=== PATIENT | female | born 1935 | race Caucasian/White ===

== ENCOUNTER 2016-12-03 13:16 | Observation (INO) ==
--- NOTE | 2016-12-03 13:53 | Emergency Department Note ---
Disposition Clinical Impression: GI bleed Qualifiers: GI bleed type/associated pathology: unspecified gastrointestinal hemorrhage type Qualified Code(s): K92.2 - Gastrointestinal hemorrhage, unspecified Chest pain Qualifiers: Chest pain type: unspecified Qualified Code(s): R07.9 - Chest pain, unspecified Disposition: Admitted As Inpatient Condition: Fair GI Bleed HPI - General Chief complaint: ED GI Bleed Stated complaint: GI Bleed Time Seen by Provider: 12/03/16 13:40 Source: patient, EMS Limitations: no limitations Nursing Notes Reviewed: Yes Vital Signs Reviewed: Yes - History of Present Illness HPI Narrative: Ms. Acosta, an 81yo female, arrives from [facility] via EMS with chief complaint of bright red blood per rectum. Patient states this began 5 days ago. States she is having bright red blood per rectum at all times; not just with bowel movements. States she is now passing clots. Patient was told by the nursing aides at [facility] that the blood is coming from her rectum, not from her vagina. Patient anticoagulated on Xaralto. Reason: hx recurrent DVT. She admits to feeling generalized weakness. Also admits to left-sided chest pressure present with exertion, nonradiating, associated with dyspnea. Admits to constipation. Denies nausea, diaphoresis, palpitations, vertigo. Denies fever, chills, nausea , vomiting, diarrhea. No hx Patient has never had a colonoscopy. Patient denies history of diverticulosis or hemorrhoids. Patient denies family history of colon cancer - Related Data Home Medications Medication Instructions Recorded Confirmed Acetaminophen [Tylenol] 650 mg PO Q6HR PRN 12/03/16 12/03/16 Alendronate Sodium [Fosamax] 70 mg PO QWEEK 12/03/16 12/03/16 Amlodipine [Norvasc] 5 mg PO DAILY 12/03/16 12/03/16 Atorvastatin Calcium [Lipitor] 20 mg PO HS 12/03/16 12/03/16 Calcium Carbonate/Vitamin D3 1 each PO BID 12/03/16 12/03/16 [Calcium 600-Vit D3 400 Tablet] Citalopram Hydrobromide 10 mg PO DAILY 12/03/16 12/03/16 [Citalopram HBr] Docusate [Colace] 100 mg PO BID PRN 12/03/16 12/03/16 Guaifenesin [Diabetic Tussin Ex] 300 mg PO Q6H PRN 12/03/16 12/03/16 LORazepam [Ativan] 0.5 mg PO DAILY 12/03/16 12/03/16 Levothyroxine [Synthroid] 112 mcg PO 0630 12/03/16 12/03/16 Loperamide HCl [Anti-Diarrheal] 2 mg PO QID PRN MDD 8 mg 12/03/16 12/03/16 Magnesium Hydroxide [Milk of 2,400 mg PO DAILY PRN 12/03/16 12/03/16 Magnesia] Oxybutynin [Ditropan] 5 mg PO BID 12/03/16 12/03/16 Polyethylene Glycol 3350 [Gavilax] 17 gm PO DAILY 12/03/16 12/03/16 PredniSONE 20 mg PO BIDWM 12/03/16 12/03/16 Rivaroxaban [Xarelto] 15 mg PO 1700 12/03/16 12/03/16 Tramadol HCl [Ultram] 50 mg PO Q4H PRN 12/03/16 12/03/16 Witch Sue [Tucks] 1 each RC Q6H PRN 12/03/16 12/03/16 Previous Rx's Medication Instructions Recorded Amoxicillin/Clavulanate [Augmentin] 875 mg PO BIDWM #20 tablet 12/01/16 Dicyclomine [Bentyl] 10 mg PO QID #20 capsule 12/01/16 Allergies Allergy/AdvReac Type Severity Reaction Status Date / Time azithromycin Allergy Anaphylaxis Verified 11/30/16 21:37 All systems ED: reviewed and negative except as stated. Constitutional: Reports: weakness. Denies: fever, chills Eyes: Denies: vision change ENT ED: Denies: throat pain, congestion Cardiovascular: Reports: chest pain, dyspnea on exertion. Denies: palpitations , orthopnea, edema, syncope Respiratory: Reports: dyspnea. Denies: cough, wheezes, hemoptysis Gastrointestinal: Reports: abdominal pain, hematochezia. Denies: nausea, vomiting, diarrhea, constipation, hematemesis, melena Genitourinary: Denies: urgency, dysuria, frequency Musculoskeletal: Denies: back pain, neck pain Neurological: Reports: weakness. Denies: headache, numbness, paresthesias, confusion, vertigo Hematological/Lymphatic: Reports: easy bleeding, easy bruising Past Medical History - Past Medical History Medical history: Reports: cancer, DVT, hypertension, thyroid disease Psychiatric history: Reports: depression - Social History Smoking Status: Never smoker Smokeless Tobacco Status: No Alcohol use: Reports: none Drug use: Reports: none Physical Exam General: Patient is alert, oriented, and in no acute distress. HEENT: No facial asymmetry. Head is normocephalic and atraumatic. PERRLA. Conjunctiva pale. Trachea midline. Oral mucosa moist. Cardiovascular: Heart regular rate and rhythm without clicks, rubs, gallops, or murmurs. No JVD. PMI nondisplaced. Respiratory: Symmetric chest rise with good respiratory effort. Bilateral breath sounds are without wheezing, crackles, or rhonchi. Abdomen: Obese. Bowel sounds present normoactive x-4 quadrants. Abdomen is soft, nondistended, without guarding. Mild tenderness in the hypogastrium. Rectal: Bright red blood per rectum. Good rectal tone. No evidence of fissure or hemorrhoid. Small balls of stool present in rectal vault. Bright red blood on gloved finger. FOBT symmetric. Psych: Patient's affect is appropriate for situation. - General Limitations: no limitations General appearance: alert Course Course Narrative: Chart check shows patient was here 3 days ago and, at that time, stated her symptoms had began 4 days previous. This would make her 7 days out from onset of bright red blood per rectum. 3 days ago, patient's FOBT was positive and lab work was unremarkable. CT abdomen and pelvis without contrast showed no acute process within the abdomen or pelvis. Patient's abdominal exam is relatively benign however rectal exam showed copious gross blood on the gloved finger. Fortunately, her hemoglobin remained stable and well above threshold for transfusion. I spoke with the patient regarding admission and she is in agreement. I spoke with the hospitalist, Dr. Hartman, and reviewed the patient's history, her imaging from Wednesday, and lab work from today as well as from Wednesday. He agrees to accept her for continued evaluation and management. Patient remained stable; not tachypneic, not tachycardic, not hypotensive. Vital Signs Temperature 98.0 F 12/03/16 13:17 Pulse Rate 74 12/03/16 13:17 Respiratory Rate 16 03/09/17 13:17 Blood Pressure 134/73 12/03/16 13:17 O2 Sat by Pulse Oximetry 100 12/03/16 13:17 Temperature 98.2 F 12/03/16 19:28 Pulse Rate 82 12/03/16 19:28 Respiratory Rate 16 12/03/16 19:28 Blood Pressure 151/54 12/03/16 19:28 O2 Sat by Pulse Oximetry 99 12/03/16 19:28 Oxygen Delivery Oxygen Delivery Room Air GI Bleed - Lab Data Result diagrams: 12/03/16 19:32 12/03/16 14:32 Lab Results 12/03/16 12/03/16 12/03/16 Range/Units 14:32 14:32 14:32 WBC 6.5 (4.3-11.1) K/mcL RBC 4.05 (3.82-4.97) M/mcL Hgb 12.2 (11.5-15.4) g/dL Hct 39.0 (35.3-44.9) % MCV 96.3 (83.0-100.0) fL MCH 30.1 (28.0-33.3) pg MCHC 31.3 L (31.6-35.5) g/dL RDW 12.6 (11.5-14.5) % Plt Count 199 (140-400) K/mcL MPV 10.6 (9.4-12.4) fL Immature Gran % 0.2 (0-4) % Seg Neutrophils % 51.5 % Lymphocytes % 35.5 % Monocytes % 10.3 % Eosinophils % 2.2 % Basophils % 0.3 % Neutrophils # 3.4 (1.6-8.9) K/mcL Lymphocytes # 2.3 (0.6-4.6) K/mcL Monocytes # 0.7 (0.0-1.3) K/mcL Eosinophils # 0.1 (0.0-0.6) K/mcL Basophils # 0.0 (0.0-0.2) K/mcL Sodium 141 (136-145) mEq/L Potassium 4.5 (3.5-4.5) mEq/L Chloride 110 H (98-109) mEq/L Carbon Dioxide 24 (19-29) mEq/L BUN 17 (7-20) mg/dL Creatinine 0.91 (0.57-1.11) mg/dL Est GFR ( Amer) > 60 (> 60) Est GFR (Non-Af Amer) 59 L (> 60) BUN/Creatinine Ratio 19 (6-26) Glucose 104 H (70-99) mg/dL Calculated Osmolality 294 (280-300) Calcium 8.5 L (8.6-10.8) mg/dL Troponin I 0.00 (0-0.03) ng/mL Stool Occult Blood (Negative) Blood Type Antibody Screen 12/03/16 12/03/16 Range/Units 14:32 14:35 WBC (4.3-11.1) K/mcL RBC (3.82-4.97) M/mcL Hgb (11.5-15.4) g/dL Hct (35.3-44.9) % MCV (83.0-100.0) fL MCH (28.0-33.3) pg MCHC (31.6-35.5) g/dL RDW (11.5-14.5) % Plt Count (140-400) K/mcL MPV (9.4-12.4) fL Immature Gran % (0-4) % Seg Neutrophils % % Lymphocytes % % Monocytes % % Eosinophils % % Basophils % % Neutrophils # (1.6-8.9) K/mcL Lymphocytes # (0.6-4.6) K/mcL Monocytes # (0.0-1.3) K/mcL Eosinophils # (0.0-0.6) K/mcL Basophils # (0.0-0.2) K/mcL Sodium (136-145) mEq/L Potassium (3.5-4.5) mEq/L Chloride (98-109) mEq/L Carbon Dioxide (19-29) mEq/L BUN (7-20) mg/dL Creatinine (0.57-1.11) mg/dL Est GFR ( Amer) (> 60) Est GFR (Non-Af Amer) (> 60) BUN/Creatinine Ratio (6-26) Glucose (70-99) mg/dL Calculated Osmolality (280-300) Calcium (8.6-10.8) mg/dL Troponin I (0-0.03) ng/mL Stool Occult Blood Positive A (Negative) Blood Type B NEGATIVE Antibody Screen NEGATIVE Attestation Statement - Attestation Attestation: DR Colbert note: Pt seen in conjunction w/ Resident Dr Mcfarlane; Please see his charting for complete documentation; I agree w/ pt's treatment and disposition and spent face to face time w/ the pt; Pt is stable at time of admission ; persistent rectal bleeding x 4-5 days; hemoglobin stable; chest pain today
[2016-12-03 14:47] LABS: Basophils % 0.3 %; Eosinophils # 0.1 K/mcL (0.0-0.6); Eosinophils % 2.2 %; Hemoglobin 12.2 g/dL (11.5-15.4); Immature Granulocytes % 0.2 % (0-4); Lymphocytes # 2.3 K/mcL (0.6-4.6); Lymphocytes % 35.5 %; Mean Corpuscular HGB Conc 31.3 g/dL (31.6-35.5); Mean Corpuscular Hemoglobin 30.1 pg (28.0-33.3); Mean Corpuscular Volume 96.3 fL (83.0-100.0); Mean Platelet Volume 10.6 fL (9.4-12.4); Monocytes # 0.7 K/mcL (0.0-1.3); Monocytes % 10.3 %; Neutrophils # 3.4 K/mcL (1.6-8.9); Platelet Count 199 K/mcL (140-400); Red Blood Count 4.05 M/mcL (3.82-4.97); Red Cell Distribution Width 12.6 % (11.5-14.5); Segmented Neutrophils % 51.5 %
[2016-12-03 15:02] LABS: BUN/Creatinine Ratio 19 (6-26); Blood Urea Nitrogen 17 mg/dL (7-20); Calcium 8.5 mg/dL (8.6-10.8); Carbon Dioxide 24 mEq/L (19-29); Chloride 110 mEq/L (98-109); Glucose 104 mg/dL (70-99); Osmolality,Calculated 294 (280-300); Potassium 4.5 mEq/L (3.5-4.5); Sodium 141 mEq/L (136-145); eGFR For African Americans > 60 (> 60); eGFR For Non-African Americans 59 (> 60)
[2016-12-03] MEDS ORDERED: GuaiFENesin Liq 200 MG/10 ML UDC PO PRN (18:53)
[2016-12-03] MEDS ORDERED: Acetaminophen 325 MG TABLET PO PRN (18:53)
[2016-12-03] MEDS ORDERED: Polyethylene Glycol 3350 255 GM POWDER PO ONE (19:03)
[2016-12-03] MEDS ORDERED: traMADol 50 MG TABLET PO PRN (19:08)
[2016-12-03] MEDS ORDERED: Ondansetron 4 MG/2 ML VIAL IVP PRN (19:11)
[2016-12-03] MEDS ORDERED: Naloxone 0.4 MG/ML INJ IVP PRN (19:11)
[2016-12-03] MEDS ORDERED: 0.9 % Sodium Chloride 1,000 ML IVC SCH (19:15)
--- NOTE | 2016-12-03 19:20 | Internal Med History&Physical ---
Date of Encounter: 12/03/16 Time of Encounter: 19:17 Assessment and Plan (1) Acute lower GI bleeding Current visit: Yes Status: Acute Patient is currently hemodynamically stable. We will place the patient on observation. Monitor hemoglobin and hematocrit every 6 hours. Transfuse if greater than 2 hemoglobin drop or hemoglobin below 8. I have discussed the case with gastroenterology. We will prep the patient for colonoscopy with plan to have a colonoscopy done tomorrow morning at 7 AM. We will start IV fluids normal saline. Stop Xarelto. Hold all anticoagulants and antiplatelets. IV PPI. (2) Essential hypertension Current visit: Yes Status: Acute Hold her oral antihypertensive medication for now as she is at risk for hypotension from volume loss secondary to GI bleed. (3) On continuous oral anticoagulation Current visit: Yes Status: Acute Hold Xarelto (4) History of DVT in adulthood Current visit: Yes Status: Acute No evidence of recurrent DVT. We will use SCDs for prophylaxis. (5) DVT prophylaxis Current visit: Yes Status: Acute Internal Medicine - H&P: HPI Chief complaint: Rectal bleeding Admitted From: Emergency Dept Plans for Post Hospital Care: Home History of present illness: Ms. Acosta is a 81 year old female with past medical history significant for breast cancer status post resection and DVT on chronic anticoagulation with Xarelto who presented to the hospital for evaluation of rectal bleeding. The patient reports that she has been having multiple episodes of rectal bleeding, or almost continuous since last Wednesday 5 days ago associated with generalized weakness denies syncope chest pain shortness of breath. She states that she passes blood every time she has a bowel movement and the blood is mixed with stool. Denies any associated abdominal pain. She had noticed no aggravating or alleviating factors. Upon evaluation in the emergency department she was noted to have abundant rectal bleeding. She she was found to be hemodynamically stable and her hemoglobin was 12. She was referred for admission. 10 point review of systems was positive for joint aches and pain secondary to osteoarthritis, rectal bleed as above, negative for any other abnormal bleeding or easy bruising. The remainder of a temporary review of systems was negative. Family history was negative for premature coronary artery disease and cancer in both parents. Past Med Surg Social Fam HX - Past Medical History Medical history: cancer, DVT, hypertension, thyroid disease Psychiatric history: depression - Social History Smoking Status: Never smoker Smokeless Tobacco Status: No Alcohol use: none Drug use: none Internal Medicine - H&P: Meds Amoxicillin/Clavulanate [Augmentin] 875 mg PO BIDWM #20 tablet 12/01/16 [Rx] Dicyclomine [Bentyl] 10 mg PO QID #20 capsule 12/01/16 [Rx] Acetaminophen [Tylenol] 650 mg PO Q6HR PRN 12/03/16 [History] Alendronate Sodium [Fosamax] 70 mg PO QWEEK 12/03/16 [History] Amlodipine [Norvasc] 5 mg PO DAILY 12/03/16 [History] Atorvastatin Calcium [Lipitor] 20 mg PO HS 12/03/16 [History] Calcium Carbonate/Vitamin D3 [Calcium 600-Vit D3 400 Tablet] 1 each PO BID 12/03 [History] Citalopram Hydrobromide [Citalopram HBr] 10 mg PO DAILY 12/03/16 [History] Docusate [Colace] 100 mg PO BID PRN 12/03/16 [History] Guaifenesin [Diabetic Tussin Ex] 300 mg PO Q6H PRN 12/03/16 [History] LORazepam [Ativan] 0.5 mg PO DAILY 12/03/16 [History] Levothyroxine [Synthroid] 112 mcg PO 0630 12/03/16 [History] Loperamide HCl [Anti-Diarrheal] 2 mg PO QID PRN MDD 8 mg 12/03/16 [History] Magnesium Hydroxide [Milk of Magnesia] 2,400 mg PO DAILY PRN 12/03/16 [History] Oxybutynin [Ditropan] 5 mg PO BID 12/03/16 [History] Polyethylene Glycol 3350 [Gavilax] 17 gm PO DAILY 12/03/16 [History] PredniSONE 20 mg PO BIDWM 12/03/16 [History] Rivaroxaban [Xarelto] 15 mg PO 1700 12/03/16 [History] Tramadol HCl [Ultram] 50 mg PO Q4H PRN 12/03/16 [History] Witch Sue [Tucks] 1 each RC Q6H PRN 12/03/16 [History] Allergies azithromycin Allergy (Verified 11/30/16 21:37) Anaphylaxis All Systems PM: A 10-system review of systems was performed and is negative for pertinent findings except as documented above in the HPI. - Constitutional Vitals: Temp Pulse Resp BP Pulse Ox 97.9 F 70 18 118/74 96 12/03/16 17:45 12/03/16 17:45 12/03/16 17:45 12/03/16 17:45 12/03/16 17:45 General appearance: Present: A&O X 3 - Respiratory Respiratory exam: Present: CTAB. Absent: accessory muscle use, rales, rhonchi, wheezes - Cardiovascular Cardiovascular exam: Present: RRR, +S1, +S2. Absent: diastolic murmur, gallop, rubs, systolic murmur - GI/Abdominal GI/Abdominal exam: Present: normal bowel sounds, soft, no peritoneal signs. Absent: distended, tenderness Additional comments: Rectal exam: with clay-anal area with dried blood noted upon inspection with no open lesions, no active bleeding, no external hemorrhoids noted. - Extremities Exam Extremities exam: Present: warm, radial pulses palpable and symetrical. Absent : calf tenderness, cyanotic, pedal edema - Neurological Exam Neurological exam: Present: CN II-XII intact, oriented X3, no focal deficits. Absent: pronater drift, facial droop, speech deficit - Skin Skin exam: Present: dry, intact Internal Med - H&P Results - Labs CBC & Chem 7: 12/03/16 14:32 12/03/16 14:32
[2016-12-03 19:55] LABS: Hematocrit 37.8 % (35.3-44.9)
[2016-12-03] MEDS ORDERED: 0.9 % Sodium Chloride 250 ML ONE (20:40)
[2016-12-03 20:51] LABS: INR 1.4; Prothrombin Time 15.3 Seconds (9.4-12.1)
[2016-12-03 20:54] LABS: Activated Partial Thrombo Time 34.7 Seconds (26.0-36.0)
[2016-12-03] MEDS: Pantoprazole 40 MG VIAL IVP SCH (20:54)
[2016-12-03] MEDS: VITAMIN D3 PO SCH (23:20)
[2016-12-03] MEDS: CALCIUM CARBONATE PO SCH (23:20)
[2016-12-04 01:07] LABS: Basophils % 0.3 %; Eosinophils # 0.2 K/mcL (0.0-0.6); Eosinophils % 2.5 %; Hematocrit 33.6 % (35.3-44.9); Hemoglobin 10.9 g/dL (11.5-15.4); Immature Granulocytes % 0.2 % (0-4); Lymphocytes # 2.1 K/mcL (0.6-4.6); Lymphocytes % 35.2 %; Mean Corpuscular HGB Conc 32.4 g/dL (31.6-35.5); Mean Corpuscular Hemoglobin 31.3 pg (28.0-33.3); Mean Corpuscular Volume 96.6 fL (83.0-100.0); Mean Platelet Volume 10.7 fL (9.4-12.4); Monocytes # 0.7 K/mcL (0.0-1.3); Neutrophils # 3.1 K/mcL (1.6-8.9); Platelet Count 165 K/mcL (140-400); Red Blood Count 3.48 M/mcL (3.82-4.97); Red Cell Distribution Width 12.7 % (11.5-14.5); Segmented Neutrophils % 50.8 %
[2016-12-04 01:24] LABS: BUN/Creatinine Ratio 16 (6-26); Blood Urea Nitrogen 13 mg/dL (7-20); Calcium 8.4 mg/dL (8.6-10.8); Carbon Dioxide 24 mEq/L (19-29); Chloride 109 mEq/L (98-109); Glucose 97 mg/dL (70-99); Osmolality,Calculated 286 (280-300); Potassium 3.7 mEq/L (3.5-4.5); Sodium 138 mEq/L (136-145); eGFR For African Americans > 60 (> 60); eGFR For Non-African Americans > 60 (> 60)
[2016-12-04 03:58] LABS: INR 1.3; Prothrombin Time 14.1 Seconds (9.4-12.1)
[2016-12-04 04:01] LABS: Activated Partial Thrombo Time 32.8 Seconds (26.0-36.0)
[2016-12-04] MEDS ORDERED: amLODIPine 5 MG TABLET PO SCH (09:00)
[2016-12-04 09:56] LABS: Basophils % 0.3 %; Eosinophils % 0.7 %; Hematocrit 38.4 % (35.3-44.9); Hemoglobin 12.3 g/dL (11.5-15.4); Immature Granulocytes % 0.5 % (0-4); Lymphocytes # 1.4 K/mcL (0.6-4.6); Lymphocytes % 22.9 %; Mean Corpuscular Volume 96.7 fL (83.0-100.0); Mean Platelet Volume 10.4 fL (9.4-12.4); Monocytes # 0.4 K/mcL (0.0-1.3); Monocytes % 7.3 %; Neutrophils # 4.1 K/mcL (1.6-8.9); Platelet Count 186 K/mcL (140-400); Red Blood Count 3.97 M/mcL (3.82-4.97); Red Cell Distribution Width 12.4 % (11.5-14.5); Segmented Neutrophils % 68.3 %
[2016-12-04] MEDS: 0.9 % Sodium Chloride 1,000 ML IVC SCH ×2 (10:42→20:15)
--- NOTE | 2016-12-04 11:19 | Gastroenterology Consult Note ---
<Bharat Nolasco - Last Filed: 12/04/16 11:27> Date of Encounter: 12/04/16 Time of Encounter: 10:05 - Assessment and plan (1) GI bleed Current Visit: Yes Status: Acute Assessment and plan: Pt with multiple episodes of BRBPR. FOBT positive. Plan for colonoscopy today. Pt reported not being clean this AM, will give 2 tap water enemas. Pt consumed about half of the bowel prep. Continue to hold Xarelto. Qualifiers: GI bleed type/associated pathology: unspecified gastrointestinal hemorrhage type Qualified Code(s): K92.2 - Gastrointestinal hemorrhage, unspecified (2) Rectal pain Current Visit: Yes Status: Acute Assessment and plan: Could be due to fissure. Will complete colonoscopy. Recommend daily fiber supplement. (3) Anemia Current Visit: Yes Status: Acute Assessment and plan: Secondary to GI bleed. Hgb 12.2 on admission and 10.9 this AM. Continue to monitor CBC and transfuse PRBC as needed. Qualifiers: Anemia type: unspecified type Qualified Code(s): D64.9 - Anemia, unspecified (4) History of DVT in adulthood Current Visit: Yes Status: Acute (5) On continuous oral anticoagulation Current Visit: Yes Status: Acute - Time Spent With Patient Total time spent is greater than 50% in coordination of care (as documented) at patient's floor/unit and/or counseling patient: GI History of Present Illness - Data of Consult Patient: new to practice Consult date: 12/04/16 Requesting Physician: Sonal Disla - Consult Narrative Reason for consult: Rectal bleeding History of present illness: Ms. Acosta is a 81 year old female with PMHx of breast cancer s/p resection, DVT on Xarelto, HTN who presented to the ED with rectal bleeding. She reports multiple episodes of rectal bleeding for the past 6 days associated with weakness. She has been noting blood with every BM, which progressed to having blood at all times not just with bowel movements. She admits some rectal pain with BM. She denies chest pain, SOB, abdominal pain, nausea, or vomiting. Fecal occult blood test was positive. No family history of colon cancer. Procedures: None NSAIDs: None Anticoagulation: Xarelto Past Med Surg Social Fam HX - Past Medical History Medical history: cancer, DVT, hypertension, thyroid disease Psychiatric history: depression - Social History Smoking Status: Never smoker Smokeless Tobacco Status: No Alcohol use: none Drug use: none - Gastrointestinal Gastrointestinal: Present: as per HPI - Constitutional Constitutional: as per HPI - EENT Eyes: as per HPI Ears: Present: as per HPI Nose, mouth and throat: Present: as per HPI - Cardiovascular Cardiovascular ROS: Present: as per HPI - Respiratory Respiratory IM: Present: as per HPI - Genitourinary Genitourinary: Absent: change in color, Urinary frequency - Neurological ROS Neurological GI: Present: as per HPI - Hematologic/Lymphatic Hematologic/Lymphatic pediatric: Present: as per HPI - Musculoskeletal Musculoskeletal ROS GI: Present: as per HPI - Integumentary Integumentary GI: Present: as per HPI - Psychiatric ROS Psychiatric GI: Present: as per HPI - Endocrine Endocrine IM: Present: as per HPI - Constitutional Vitals: Temp Pulse Resp BP Pulse Ox 97.5 F L 89 18 168/82 94 L 12/04/16 07:28 12/04/16 07:28 12/04/16 07:28 12/04/16 07:28 12/04/16 07:28 General appearance: Present: cooperative, A&O X 3, no acute distress, answers questions appropriately - Head Head exam: Present: atraumatic, normocephalic - Eye Eye exam: Present: normal appearance, sclera anicteric - ENT ENT exam: Present: mucous membranes dry - Neck Neck exam general surgery: Present: normal inspection, trachea midline - Respiratory Respiratory exam: Present: CTAB. Absent: rales, rhonchi - Cardiovascular Cardiovascular exam: Present: RRR, +S1, +S2 - GI/Abdominal GI/Abdominal exam: Present: soft, no peritoneal signs. Absent: distended, firm , guarding, tenderness - Rectal Rectal exam: Present: deferred - Extremities Exam Extremities exam: Present: warm - Neurological Exam Neurological exam: Present: no focal deficits - Psychiatric Psychiatric exam: Present: normal affect, normal mood - Skin Skin exam: Present: dry, intact, normal color, warm Results - Labs CBC & Chem 7: 12/04/16 09:38 12/04/16 00:52 Labs: Last Result Calcium 8.4 mg/dL (8.6-10.8) L 12/04/16 00:52 Troponin I 0.00 ng/mL (0-0.03) 12/03/16 14:32 Stool Occult Blood Positive (Negative) A 12/03/16 14:35 Entire Visit Hgb 12.3 g/dL (11.5-15.4) 12/04/16 09:38 Hct 38.4 % (35.3-44.9) 12/04/16 09:38 PT 14.1 Seconds (9.4-12.1) H 12/04/16 03:42 - ABG ABG results: PT/INR, D-dimer PT 14.1 Seconds (9.4-12.1) H 12/04/16 03:42 Consult Discharge Plan - Plan Referrals: NO,PCP [Primary Care Provider] - <Jodi Goncalves - Last Filed: 12/04/16 12:42> Time of Encounter: 11:00 - Time Spent With Patient Total time spent is greater than 50% in coordination of care (as documented) at patient's floor/unit and/or counseling patient: GI History of Present Illness - Data of Consult Requesting Physician: Sonal Disla - Consult Narrative History of present illness: Ms. Acosta is a 81 year old female - Constitutional Vitals: Temp Pulse Resp BP Pulse Ox 97.4 F L 69 17 145/89 95 12/04/16 11:27 12/04/16 11:27 12/04/16 11:27 12/04/16 11:27 12/04/16 11:27 Results - Labs CBC & Chem 7: 12/04/16 09:38 12/04/16 00:52 Labs: Last Result Calcium 8.4 mg/dL (8.6-10.8) L 12/04/16 00:52 Troponin I 0.00 ng/mL (0-0.03) 12/03/16 14:32 Stool Occult Blood Positive (Negative) A 12/03/16 14:35 Entire Visit Hgb 12.3 g/dL (11.5-15.4) 12/04/16 09:38 Hct 38.4 % (35.3-44.9) 12/04/16 09:38 PT 14.1 Seconds (9.4-12.1) H 12/04/16 03:42 - ABG ABG results: PT/INR, D-dimer PT 14.1 Seconds (9.4-12.1) H 12/04/16 03:42 - Attending Attestation I examined this patient and my medical decision-making was reviewed with the OIL BURNER REPAIRER/PA/Advanced Practice Nurse/Resident Physician. I agree with the documented findings, disposition and treatment plan as described except to the extent set forth below.
[2016-12-04] MEDS ORDERED: *HR* FentaNYL (PF) 100 MCG/2 ML VIAL IVP PRN (13:49)
[2016-12-04] MEDS ORDERED: Simethicone 40 MG/0.6 ML MLS IR ONE (13:49)
[2016-12-04] MEDS ORDERED: *HR* Midazolam HCl 5 MG/5 ML VIAL IVP PRN (13:49)
[2016-12-04] MEDS ORDERED: *HR* Midazolam HCl 5 MG/5 ML VIAL IVP ONE (13:52)
[2016-12-04] MEDS ORDERED: *HR* FentaNYL (PF) 100 MCG/2 ML VIAL ONE (13:52)
[2016-12-04] MEDS ORDERED: 0.9 % Sodium Chloride 500 ML IVC SCH (14:00)
[2016-12-04] MEDS: *HR* LORazepam 0.5 MG TABLET PO SCH (15:22)
[2016-12-04] MEDS: predniSONE 20 MG TABLET PO SCH ×2 (15:22→15:24)
[2016-12-04] MEDS: VITAMIN D3 PO SCH ×2 (15:23→22:05)
[2016-12-04] MEDS: Pantoprazole 40 MG VIAL IVP SCH (15:23)
[2016-12-04] MEDS: CALCIUM CARBONATE PO SCH ×2 (15:23→22:05)
--- NOTE | 2016-12-04 17:39 | Internal Med Progress Note ---
Date of Encounter: 12/04/16 Time of Encounter: 17:37 - Assessment and plan (1) Acute lower GI bleeding Current Visit: Yes Status: Acute Assessment and plan: Currently hemodynamically stable, hemoglobin in the morning remained stable. Patient to undergo colonoscopy today with GI. We will follow-up colonoscopy results. Repeat CBC in a.m. tomorrow, transfuse as needed. (2) Essential hypertension Current Visit: Yes Status: Acute Assessment and plan: Blood pressure stable, will continue home medications. (3) On continuous oral anticoagulation Current Visit: Yes Status: Acute Assessment and plan: Patient on chronic anticoagulation with xarelto for DVT. xarelto has been held for now, we will continue SCDs for prophylaxis. No evidence of recurrent DVT. - Time Spent With Patient 25 - 35 minutes - Subjective Interval history: Patient seen at the bedside, admitted for rectal bleed. Complaints of mild abdominal pain and had a bloody bowel movement this morning after taking the bowel preparation for colonoscopy. Denies any dizziness or chest pain. Hemoglobin has remained stable. Plan for colonoscopy by GI today. - Constitutional Vitals: Temp Pulse Resp BP Pulse Ox 97.4 F L 66 17 173/72 95 12/04/16 15:08 12/04/16 15:08 12/04/16 15:08 12/04/16 15:08 12/04/16 15:08 General appearance: Present: A&O X 3 Exam: - Respiratory Respiratory exam: Present: CTAB. Absent: accessory muscle use, rales, rhonchi, wheezes - Cardiovascular Cardiovascular exam: Present: RRR, +S1, +S2. Absent: diastolic murmur, gallop, rubs, systolic murmur - GI/Abdominal GI/Abdominal exam: Present: normal bowel sounds, soft, no peritoneal signs. Absent: distended, tenderness - Extremities Exam Extremities exam: Present: warm, radial pulses palpable and symetrical. Absent : calf tenderness, cyanotic, pedal edema - Neurological Exam Neurological exam: Present: CN II-XII intact, oriented X3, no focal deficits. Absent: pronater drift, facial droop, speech deficit - Skin Skin exam: Present: dry, intact Internal Medicine: Result - Labs CBC & Chem 7: 12/04/16 09:38 12/04/16 00:52 Labs: Short CBC 12/03/16 12/04/16 12/04/16 Range/Units 19:32 00:52 09:38 WBC 6.0 6.0 (4.3-11.1) K/mcL Hgb 12.0 10.9 L 12.3 (11.5-15.4) g/dL Hct 37.8 33.6 L 38.4 (35.3-44.9) % Plt Count 165 186 (140-400) K/mcL Neutrophils # 3.1 4.1 (1.6-8.9) K/mcL BMP 12/04/16 00:52 Sodium 138 Potassium 3.7 Chloride 109 Carbon Dioxide 24 BUN 13 Creatinine 0.79 Glucose 97 Calcium 8.4 L - ABG Interpretation ABG results: PT/INR, D-dimer PT 14.1 Seconds (9.4-12.1) H 12/04/16 03:42 Consult Discharge Plan - Plan Referrals: NO,PCP [Primary Care Provider] -
--- NOTE | 2016-12-04 17:52 | Electrocardiograph Report ---
[address] [place], [place] [address] Test Date: 2016-12-03 Pat Name: Rachel Acosta Department: 103 Room: 3B44 Gender: F Educational Psychologist: : 1935 Requested By: Farzad Mcfarlane Order Number: [id number] Reading MD: Shelly eLvine Measurements Intervals [place] Rate: 74 P: 67 AR: 194 QRS: -19 QRSD: 106 T: 17 QT: 429 QTc: 456 Interpretive Statements SINUS RHYTHM WITH FREQUENT SUPRAVENTRICULAR PREMATURE COMPLEXES LOW QRS VOLTAGE IN PRECORDIAL LEADS POSSIBLE ANTERIOR MYOCARDIAL INFARCTION, PROBABLY OLD ABNORMAL RHYTHM ECG Electronically Signed On 12-04-2016 17:50:05 EST by Shlely Levine
[2016-12-05] MEDS: 0.9 % Sodium Chloride 1,000 ML IVC SCH (06:14)
[2016-12-05] MEDS: predniSONE 20 MG TABLET PO SCH ×2 (08:22→17:51)
[2016-12-05] MEDS: *HR* LORazepam 0.5 MG TABLET PO SCH (08:22)
[2016-12-05] MEDS: CALCIUM CARBONATE PO SCH ×2 (08:23→20:07)
[2016-12-05] MEDS: VITAMIN D3 PO SCH ×2 (08:23→20:07)
[2016-12-05] MEDS: Pantoprazole 40 MG VIAL IVP SCH (08:23)
[2016-12-05 13:54] LABS: Basophils % 0.1 %; Hematocrit 35.4 % (35.3-44.9); Hemoglobin 11.1 g/dL (11.5-15.4); Immature Granulocytes % 0.9 % (0-4); Lymphocytes # 1.2 K/mcL (0.6-4.6); Lymphocytes % 16.1 %; Mean Corpuscular HGB Conc 31.4 g/dL (31.6-35.5); Mean Corpuscular Hemoglobin 30.1 pg (28.0-33.3); Mean Corpuscular Volume 95.9 fL (83.0-100.0); Mean Platelet Volume 10.8 fL (9.4-12.4); Monocytes # 0.1 K/mcL (0.0-1.3); Monocytes % 1.9 %; Platelet Count 201 K/mcL (140-400); Red Blood Count 3.69 M/mcL (3.82-4.97); Red Cell Distribution Width 12.4 % (11.5-14.5)
--- NOTE | 2016-12-05 18:01 | Internal Med Progress Note ---
Date of Encounter: 12/05/16 Time of Encounter: 17:59 - Assessment and plan (1) Acute lower GI bleeding Current Visit: Yes Status: Acute Assessment and plan: Currently hemodynamically stable, hemoglobin in the morning remained stable. no reports of EGD/colonosoppy in the computer, will call dr. Muñoz. Repeat CBC in a.m. tomorrow, transfuse as needed. (2) Essential hypertension Current Visit: Yes Status: Acute Assessment and plan: Blood pressure stable, will continue home medications. (3) On continuous oral anticoagulation Current Visit: Yes Status: Acute Assessment and plan: Patient on chronic anticoagulation with xarelto for DVT. xarelto has been held for now, we will continue SCDs for prophylaxis. No evidence of recurrent DVT. - Time Spent With Patient 25 - 35 minutes - Subjective Interval history: Patient seen at the bedside, admitted for rectal bleed. Complaints of mild abdominal pain , s.p EGD and colonoscopy, no reports in the computer. [employer] has had no bowel movement today. Denies any dizziness or chest pain. Hemoglobin has remained stable. - Constitutional Vitals: Temp Pulse Resp BP Pulse Ox 97.4 F L 99 16 138/82 93 L 12/05/16 14:55 12/05/16 14:55 12/05/16 14:55 12/05/16 14:55 12/05/16 14:55 General appearance: Present: A&O X 3 Exam: - Respiratory Respiratory exam: Present: CTAB. Absent: accessory muscle use, rales, rhonchi, wheezes - Cardiovascular Cardiovascular exam: Present: RRR, +S1, +S2. Absent: diastolic murmur, gallop, rubs, systolic murmur - GI/Abdominal GI/Abdominal exam: Present: normal bowel sounds, soft, no peritoneal signs. Absent: distended, tenderness - Extremities Exam Extremities exam: Present: warm, radial pulses palpable and symetrical. Absent : calf tenderness, cyanotic, pedal edema - Neurological Exam Neurological exam: Present: CN II-XII intact, oriented X3, no focal deficits. Absent: pronater drift, facial droop, speech deficit - Skin Skin exam: Present: dry, intact Internal Medicine: Result - Labs CBC & Chem 7: 12/05/16 13:44 12/04/16 00:52 Labs: Short CBC 12/05/16 Range/Units 13:44 WBC 7.4 (4.3-11.1) K/mcL Hgb 11.1 L (11.5-15.4) g/dL Hct 35.4 (35.3-44.9) % Plt Count 201 (140-400) K/mcL Neutrophils # 6.0 (1.6-8.9) K/mcL - ABG Interpretation ABG results: PT/INR, D-dimer PT 14.1 Seconds (9.4-12.1) H 12/04/16 03:42 Consult Discharge Plan - Plan Referrals: NO,PCP [Primary Care Provider] -
[2016-12-06 04:33] LABS: Basophils % 0.1 %; Hematocrit 31.4 % (35.3-44.9); Hemoglobin 10.3 g/dL (11.5-15.4); Immature Granulocytes % 0.4 % (0-4); Lymphocytes # 1.4 K/mcL (0.6-4.6); Lymphocytes % 20.7 %; Mean Corpuscular HGB Conc 32.8 g/dL (31.6-35.5); Mean Corpuscular Hemoglobin 31.2 pg (28.0-33.3); Mean Corpuscular Volume 95.2 fL (83.0-100.0); Mean Platelet Volume 11.3 fL (9.4-12.4); Monocytes # 0.4 K/mcL (0.0-1.3); Monocytes % 5.4 %; Platelet Count 179 K/mcL (140-400); Red Cell Distribution Width 12.5 % (11.5-14.5); Segmented Neutrophils % 73.4 %
[2016-12-06] MEDS: Pantoprazole 40 MG VIAL IVP SCH (08:42)
[2016-12-06] MEDS: predniSONE 20 MG TABLET PO SCH (08:42)
[2016-12-06] MEDS: *HR* LORazepam 0.5 MG TABLET PO SCH (08:42)
[2016-12-06] MEDS: VITAMIN D3 PO SCH (08:42)
[2016-12-06] MEDS: CALCIUM CARBONATE PO SCH (08:42)
[2016-12-06 11:11] VITALS: BP 161/70
--- NOTE | 2016-12-06 12:11 | Discharge Summary ---
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 (5) On continuous oral anticoagulation Priority: Secondary Status: Chronic - Discharge Medications Prescriptions: Ferrous Sulfate 325 mg PO DAILY 30 Days Home Medications: Amoxicillin/Clavulanate [Augmentin] 875 mg PO BIDWM #20 tablet 12/01/16 [Rx] Dicyclomine [Bentyl] 10 mg PO QID #20 capsule 12/01/16 [Rx] Acetaminophen [Tylenol] 650 mg PO Q6HR PRN 12/03/16 [History] Alendronate Sodium [Fosamax] 70 mg PO QWEEK 12/03/16 [History] Amlodipine [Norvasc] 5 mg PO DAILY 12/03/16 [History] Atorvastatin Calcium [Lipitor] 20 mg PO HS 12/03/16 [History] Calcium Carbonate/Vitamin D3 [Calcium 600-Vit D3 400 Tablet] 1 each PO BID 12/03 [History] Citalopram Hydrobromide [Citalopram HBr] 10 mg PO DAILY 12/03/16 [History] Docusate [Colace] 100 mg PO BID PRN 12/03/16 [History] Guaifenesin [Diabetic Tussin Ex] 300 mg PO Q6H PRN 12/03/16 [History] LORazepam [Ativan] 0.5 mg PO DAILY 12/03/16 [History] Levothyroxine [Synthroid] 112 mcg PO 0630 12/03/16 [History] Loperamide HCl [Anti-Diarrheal] 2 mg PO QID PRN MDD 8 mg 12/03/16 [History] Magnesium Hydroxide [Milk of Magnesia] 2,400 mg PO DAILY PRN 12/03/16 [History] Oxybutynin [Ditropan] 5 mg PO BID 12/03/16 [History] Polyethylene Glycol 3350 [Gavilax] 17 gm PO DAILY 12/03/16 [History] PredniSONE 20 mg PO BIDWM 12/03/16 [History] Tramadol HCl [Ultram] 50 mg PO Q4H PRN 12/03/16 [History] Michael Rogers [Tucks] 1 each RC Q6H PRN 12/03/16 [History] Ferrous Sulfate 325 mg PO DAILY 30 Days 12/06/16 [Rx] Allergies/Adverse Reactions: Allergies azithromycin Allergy (Verified 11/30/16 21:37) Anaphylaxis Date of admission: 12/03/16 16:54 Primary care physician: PCP NO Consults: 12/03/16 18:00 Consult to Locks Tender [CONS] Routine Reason for SW Consult: discharge planning, pt from ECF 12/03/16 19:13 Consult to Physician [CONS] Routine Consulting Provider: Jodi Goncalves Reason for Consult: rectal bleed Time Notified: 19:13 Call Completed: Yes Discharging clinician: Marty Wayne Anticipated date of discharge: 12/06/16 - Patient Status Disposition: Transfer SNF Condition: Good Overall status at discharge: patient is back to baseline - Ambulatory Orders Ambulatory Orders: Hemoglobin and Hematocrit [HEME] Time Frame: 1 Week, Facility: [facility], Location: Lab - Discharge Instructions Follow Up With: NO,PCP [Primary Care Provider] - Additional Instructions: DC back to [place] Continue to hold Xarelto F/U with Dr Goncalves and Cancer Center. F/U PCP Start Ferous sulphate 324 mg po QD. Stools may turn black. Check HH in 1 week. - Diet and Activity Activity: resume usual activities as tolerated Diet: advance to your usual diet, low salt diet Interval History: Feels better. No more overt bleeding per rectum. Official report on colonoscopy not available yet. Hospital course: Ms. cAosta is a 81 year old female medical history significant for breast cancer status post resection and DVT on chronic anticoagulation with Xarelto for single episode of lower extremity admitted with painless bright red bleeding per rectum with hemodynamic stability. who presented to the hospital for evaluation of rectal bleeding. She underwent colonoscopy and I am informed by RN that a polyp was snared, otherwise, no major findng. No more bleeding rectum since colonoscopy. Xarelto continues to be held. As her DVT (2011) WAS A SINGLE EVENT, AND WITHOUT PULMONARY EMBOLISM, risk benefit analysis favors holding anticoagulation, rather using TEDs as the patient is sedentary. She has a history of breast cancer which has been treted with resection, without clinical recurrence. She will follow-up with Dr Goncalves (credit administrator) and at the cancer center to obtain second opinion on reinitiating Xarelto. At discharge Hb=10.3g/dl (relatively stable). At discharge: Obese, not in distress Not pale, anicteric, afebrile, acyanotic, Chest: CTAB, mastectomy site. Abdomen: soft, non-tender, no masses. DEPUTY K 9: AAO X 3, Extremities: trace pedal edema PLAN DC back to [facility] Continue to hold Xarelto F/U with Dr Goncalves and Cancer Center. F/U PCP Start Ferous sulphate 324 mg po QD. Stools may turn black. - Time Spent with Patient Total time spent providing and/or coordinating discharge services: Greater than 30 minutes - Constitutional Vitals: Temp Pulse Resp BP Pulse Ox 97.8 F 68 15 161/70 94 L 12/06/16 11:02 12/06/16 11:02 12/06/16 11:02 12/06/16 11:02 12/06/16 11:02 General appearance: Present: A&O X 3
--- NOTE | 2016-12-06 12:24 | Physician Discharge Referral ---
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 (5) On continuous oral anticoagulation Priority: Secondary Status: Chronic Prognosis: Fair Aware of Diagnosis: Patient Aware of Prognosis: Patient - Transfer Medications Prescriptions: Ferrous Sulfate 325 mg PO DAILY 30 Days Home Medications: Amoxicillin/Clavulanate [Augmentin] 875 mg PO BIDWM #20 tablet 12/01/16 [Rx] Dicyclomine [Bentyl] 10 mg PO QID #20 capsule 12/01/16 [Rx] Acetaminophen [Tylenol] 650 mg PO Q6HR PRN 12/03/16 [History] Alendronate Sodium [Fosamax] 70 mg PO QWEEK 12/03/16 [History] Amlodipine [Norvasc] 5 mg PO DAILY 12/03/16 [History] Atorvastatin Calcium [Lipitor] 20 mg PO HS 12/03/16 [History] Calcium Carbonate/Vitamin D3 [Calcium 600-Vit D3 400 Tablet] 1 each PO BID 12/03 [History] Citalopram Hydrobromide [Citalopram HBr] 10 mg PO DAILY 12/03/16 [History] Docusate [Colace] 100 mg PO BID PRN 12/03/16 [History] Guaifenesin [Diabetic Tussin Ex] 300 mg PO Q6H PRN 12/03/16 [History] LORazepam [Ativan] 0.5 mg PO DAILY 12/03/16 [History] Levothyroxine [Synthroid] 112 mcg PO 0630 12/03/16 [History] Loperamide HCl [Anti-Diarrheal] 2 mg PO QID PRN MDD 8 mg 12/03/16 [History] Magnesium Hydroxide [Milk of Magnesia] 2,400 mg PO DAILY PRN 12/03/16 [History] Oxybutynin [Ditropan] 5 mg PO BID 12/03/16 [History] Polyethylene Glycol 3350 [Gavilax] 17 gm PO DAILY 12/03/16 [History] PredniSONE 20 mg PO BIDWM 12/03/16 [History] Tramadol HCl [Ultram] 50 mg PO Q4H PRN 12/03/16 [History] Michael Rogers [Tucks] 1 each RC Q6H PRN 12/03/16 [History] Ferrous Sulfate 325 mg PO DAILY 30 Days 12/06/16 [Rx] Allergies/Adverse Reactions: Allergies azithromycin Allergy (Verified 11/30/16 21:37) Anaphylaxis - Respiratory Orders Smoking Cessation: Smoking cessation has been advised. For more information, call the [place] Tobacco Quit Line at 2-003-YGZL-NOW. - Lab Orders Lab Orders: CBC (IN 1 WEEK (HH will suffice)) - Advance Directives Living Will: Yes Power of Program Management Manager: Yes Code Status: DNR-Arrest/Don't Intubate - History and Physical History/Physical reviewed & approved w/add comments: Plese see H& and discharge summary of index admission. - Mobility Orders Ambulate, Bedrest - Rehabiliation Orders Rehab Potential: Fair Rehab Orders: ROM Exercises, Evaluation for Physical Therapy, Evaluation for Occupational Therapy - Treatments List/Other: The patient should wear good fitting FANNIE stocking for DVT prophylaxis. CERTIFICATION: I certify that the transfer of the above named patient to an Extended Care Facility is necessary for the continuing treatment of the diagnosis listed. The above information is true and accurate reflection of patient's current condition. Confidential - Redisclosure prohibited without a patient's written consent.
== END 2016-12-06 16:07 ==
LOC: 3BNU 13:16 → EMEROO 13:16 → SUATTDRO 16:54 → 3BNU 17:27
PROVIDERS: ADMIT Internal Medicine; ATTEND Internal Medicine Endocrinology, Diabetes & Metabolism

== ENCOUNTER 2019-04-16 20:53 | Observation (INO) ==
[2019-04-16] MEDS ORDERED: Aspirin 81 MG TAB.CHEW PO ONE (21:07)
[2019-04-16] MEDS ORDERED: Isovue-370 500 ML BOTTLE IVP ONE (21:20)
--- NOTE | 2019-04-16 21:23 | Emergency Department Note ---
Disposition Clinical Impression: ACS (acute coronary syndrome) Disposition: Still a Patient Forms: ED Satisfaction Letter Time of Disposition: 21:23 General Adult HPI - General Chief complaint: ED Chest Pain Stated complaint: chest pain Time Seen by Provider: 04/16/19 20:58 Source: patient, EMS Mode of arrival: EMS Limitations: no limitations, age Nursing Notes Reviewed: Yes Vital Signs Reviewed: Yes - History of Present Illness HPI Narrative: Attestation note: Patient was seen with the emergency medicine resident/nurse practitioner/physician expanded function dental assistant/transitional resident/medical student: Dr. ASHLIE URBAN. This includes well any procedures performed for this significant portion thereof which are to include EKG and bedside ultrasound I have personally performed a face to face evaluation on this patient. I have reviewed and agree with history and physical examination patient management and disposition. Briefly the salient points of the case are as follows: 83-year-old female history of hypertension among other things no history of known coronary artery disease brought in by EMS for abdominal and chest pain after eating patient was at a longterm facility had a meal shortly thereafter and epigastric and abdominal pain to give her 3 nitros her pressure went down to about 80 systolic of this. Sent by EMS patient is now awake alert abdomen distended diffusely tender chest is clear cardiac this emergency Department and EKG shows no acute ischemic changes to her HEART scores 4 patient will undergo troponin chest x-ray screening labs IV fluids and analgesics anti-medics and abdominal pelvic CT with IV contrast. Disposition pending Pain Scale: 5 - Related Data Home Medications Medication Instructions Recorded Confirmed Acetaminophen [Tylenol] 650 mg PO Q6HR PRN 12/03/16 12/03/16 Alendronate Sodium [Fosamax] 70 mg PO QWEEK 12/03/16 12/03/16 Atorvastatin Calcium [Lipitor] 20 mg PO HS 12/03/16 12/03/16 Calcium Carbonate/Vitamin D3 1 each PO BID 12/03/16 12/03/16 [Calcium 600-Vit D3 400 Tablet] Citalopram Hydrobromide 10 mg PO DAILY 12/03/16 12/03/16 [Citalopram HBr] Docusate [Colace] 100 mg PO BID PRN 12/03/16 12/03/16 Guaifenesin [Diabetic Tussin Ex] 300 mg PO Q6H PRN 12/03/16 12/03/16 LORazepam [Ativan] 0.5 mg PO DAILY 12/03/16 12/03/16 Levothyroxine [Synthroid] 112 mcg PO 0630 12/03/16 12/03/16 Loperamide HCl [Anti-Diarrheal] 2 mg PO QID PRN MDD 8 mg 12/03/16 12/03/16 Magnesium Hydroxide [Milk of 2,400 mg PO DAILY PRN 12/03/16 12/03/16 Magnesia] Oxybutynin [Ditropan] 5 mg PO BID 12/03/16 12/03/16 Polyethylene Glycol 3350 [Gavilax] 17 gm PO DAILY 12/03/16 12/03/16 Tramadol HCl [Ultram] 50 mg PO Q4H PRN 12/03/16 12/03/16 Witch Sue [Tucks] 1 each RC Q6H PRN 12/03/16 12/03/16 amLODIPine [Norvasc] 5 mg PO DAILY 12/03/16 12/03/16 predniSONE [PredniSONE] 20 mg PO BIDWM 12/03/16 12/03/16 Previous Rx's Medication Instructions Recorded Amoxicillin/Clavulanate [Augmentin] 875 mg PO BIDWM #20 tablet 12/01/16 Dicyclomine [Bentyl] 10 mg PO QID #20 capsule 12/01/16 Ferrous Sulfate 325 mg PO DAILY 30 Days tablet. 12/06/16 Allergies Allergy/AdvReac Type Severity Reaction Status Date / Time azithromycin Allergy Anaphylaxis Verified 02/19/17 09:31 Past Medical History - Past Medical History Medical history: Reports: cancer, DVT, hypertension, thyroid disease Psychiatric history: Reports: depression - Social History Smoking Status: Never smoker Smokeless Tobacco Status: No Alcohol use: Reports: none Drug use: Reports: none Physical Exam - General Limitations: age General appearance: alert, in no apparent distress Course Vital Signs Temperature 98.4 F 04/16/19 20:55 Pulse Rate 107 04/16/19 20:55 Respiratory Rate 17 04/16/19 20:55 Blood Pressure 130/99 04/16/19 20:55 O2 Sat by Pulse Oximetry 98 04/16/19 20:55 Temperature 98.4 F 04/16/19 20:55 Pulse Rate 107 04/16/19 20:55 Respiratory Rate 17 04/16/19 20:55 Blood Pressure 130/99 04/16/19 20:55 O2 Sat by Pulse Oximetry 98 04/16/19 20:55 Oxygen Delivery Oxygen Delivery Room Air
[2019-04-16] MEDS ORDERED: 0.9 % Sodium Chloride 500 ML IVC ONE (21:24)
[2019-04-16] MEDS ORDERED: *HR* FentaNYL (PF) 100 MCG/2 ML VIAL IVP ONE (21:24)
--- NOTE | 2019-04-16 21:25 | Emergency Department Note ---
Disposition Clinical Impression: ACS (acute coronary syndrome) Disposition: Admitted As Inpatient Condition: Good Referrals: NONE,PCP [Primary Care Provider] - Time of Disposition: 01:29 Chest Pain HPI - General Chief Complaint: ED Chest Pain Stated Complaint: chest pain Time Seen by Provider: 04/16/19 20:58 Source: patient, EMS Mode of arrival: EMS Limitations: age Vital Signs Reviewed: Yes Nursing Notes Reviewed: Yes - History of Present Illness HPI Narrative: This is an 83-year-old female with a history of hypertension hyperlipidemia presenting the emergency department from her [facility] with chest pain and abdominal pain. She states that while eating her evening meal she developed a chest pain and abdominal pain. She was given 2 nitroglycerin sublingual tablets which did not relieve her pain however it did drop her blood pressure. He will emergency department she states she has chest pain is rated as 5 out of 10 that radiates to her neck and down her left arm as well as her left side. She is also complaining of abdominal tenderness specifically suprapubic and epigastric. Patient denies nausea, vomiting, palpitations, shortness of breath more than baseline. She admits to constipation Severity scale (1-10): 5 - Related Data Home Medications Medication Instructions Recorded Confirmed Acetaminophen [Tylenol] 650 mg PO Q6HR PRN 12/03/16 12/03/16 Atorvastatin Calcium [Lipitor] 20 mg PO HS 12/03/16 12/03/16 Calcium Carbonate/Vitamin D3 1 each PO BID 12/03/16 12/03/16 [Calcium 600-Vit D3 400 Tablet] Citalopram Hydrobromide 10 mg PO DAILY 12/03/16 12/03/16 [Citalopram HBr] LORazepam [Ativan] 0.5 mg PO DAILY 12/03/16 12/03/16 Levothyroxine [Synthroid] 112 mcg PO 0630 12/03/16 12/03/16 Magnesium Hydroxide [Milk of 2,400 mg PO DAILY PRN 12/03/16 12/03/16 Magnesia] Oxybutynin [Ditropan] 5 mg PO BID 12/03/16 12/03/16 Polyethylene Glycol 3350 [Gavilax] 17 gm PO DAILY 12/03/16 12/03/16 Tramadol HCl [Ultram] 50 mg PO Q4H PRN 12/03/16 12/03/16 Previous Rx's Medication Instructions Recorded Dicyclomine [Bentyl] 10 mg PO QID #20 capsule 12/01/16 Allergies Allergy/AdvReac Type Severity Reaction Status Date / Time azithromycin Allergy Anaphylaxis Verified 02/19/17 09:31 All systems ED: reviewed and negative except as stated. Review of Systems: As Per HPI Constitutional: Denies: fever, chills Cardiovascular: Reports: chest pain, dyspnea on exertion. Denies: palpitations Respiratory: Denies: cough, dyspnea, wheezes Gastrointestinal: Reports: abdominal pain. Denies: nausea, vomiting Genitourinary: Reports: frequency. Denies: urgency, dysuria, hematuria Musculoskeletal: Denies: back pain, neck pain Neurological: Denies: headache, weakness, numbness Endocrine: Denies: fatigue Chest Pain PMH - Past Medical History Medical history: Reports: cancer, DVT, hypertension, thyroid disease Psychiatric history: Reports: depression - Social History Smoking Status: Never smoker Alcohol use: Reports: none Drug use: Reports: none Physical Exam - General Limitations: no limitations, age General appearance: alert, in no apparent distress - Head Head exam: atraumatic, normocephalic - Eye Eye exam: Present: normal appearance, PERRL - ENT ENT exam: normal exam, normal oropharynx - Neck Neck exam: Present: normal inspection - Chest Chest inspection: Present: normal inspection, symmetric chest wall rise. Absent: tenderness - Respiratory Respiratory exam: Present: normal lung sounds bilaterally. Absent: respiratory distress, wheezes - Cardiovascular Cardiovascular exam: Present: regular rate - Abdominal Exam Abdominal exam: Present: soft, tenderness, distention, guarding Abdominal tenderness: Present: suprapubic, diffuse, mild - Neurological Exam Neurological exam: Present: alert, oriented X3 - Psychiatric Psychiatric exam: Present: normal affect, normal mood Course Course Narrative: Patient presented with chest pain. Heart score 4. Negative workup, negative troponin. Abdominal pain CT scan of the belly shows possible cystitis. admission for cardiac work up. - Reevaluation(s) Reevaluation #1: Patient reevaluated after receiving pain medication she is comfortable and only having mild chest and belly pain. Time: 23:01 Reevaluation #2: Patient is sleeping comfortably in bed. Awaiting CT results Time: 00:05 Reevaluation #3: Patient informed of likely admission for cardiac workup. Patient agrees with the plan. Time: 01:00 - Consultations Consultation #1: Spoke with who was informed of the patient. Has agreed to admit the patient. Patient is in stable condition. Time: 01:23 Vital Signs Temperature 98.4 F 04/16/19 20:55 Pulse Rate 107 04/16/19 20:55 Respiratory Rate 17 04/16/19 20:55 Blood Pressure 130/99 04/16/19 20:55 O2 Sat by Pulse Oximetry 98 04/16/19 20:55 Temperature 98.4 F 04/16/19 20:55 Pulse Rate 65 04/16/19 22:54 Respiratory Rate 22 04/17/19 01:22 Blood Pressure 139/58 04/17/19 01:22 O2 Sat by Pulse Oximetry 99 04/16/19 22:54 Oxygen Delivery Oxygen Delivery Nasal Cannula Chest Pain - MDM Narrative Medical decision making narrative: Patient presented to the emergency department with chest pain and abdominal pain. Patient received 2 nitroglycerin with no relief at home. Here cardiac workup was negative. Her heart score is 4. CT of her abdomen reveals a possible cystitis. UA is pending. Patient will be admitted for cardiac workup. Patient agrees with the plan. - Medical Records Medical records reviewed: Yes I reviewed the patient's medical records. - Lab Data Lab results reviewed: Yes I reviewed the patient's lab results. Result diagrams: 04/16/19 21:39 04/16/19 21:39 Lab Results 04/16/19 04/16/19 04/16/19 Range/Units 21:39 21:39 21:39 WBC 8.2 (4.3-11.1) K/mcL RBC 3.92 (3.82-4.97) M/mcL Hgb 12.0 (11.5-15.4) g/dL Hct 38.0 (35.3-44.9) % MCV 96.9 (83.0-100.0) fL MCH 30.6 (28.0-33.3) pg MCHC 31.6 (31.6-35.5) g/dL RDW 13.7 (11.5-14.5) % Plt Count 184 (140-400) K/mcL MPV 10.6 (9.4-12.4) fL Immature Gran % 0.1 (0-4) % Seg Neutrophils % 52.3 % Lymphocytes % 34.1 % Monocytes % 10.0 % Eosinophils % 3.3 % Basophils % 0.2 % Neutrophils # 4.3 (1.6-8.9) K/mcL Lymphocytes # 2.8 (0.6-4.6) K/mcL Monocytes # 0.8 (0.0-1.3) K/mcL Eosinophils # 0.3 (0.0-0.6) K/mcL Basophils # 0.0 (0.0-0.2) K/mcL PT 12.0 (9.4-12.1) Seconds INR 1.1 APTT 33.2 (26.0-36.0) Seconds Sodium 140 (136-145) mEq/L Potassium 3.6 (3.5-5.1) mEq/L Chloride 105 (98-107) mEq/L Carbon Dioxide 28 (23-29) mEq/L BUN 17 (8-23) mg/dL Creatinine 1.04 (0.60-1.20) mg/dL Est GFR ( Amer) > 60 (> 60) Est GFR (Non-Af Amer) 51 L (> 60) BUN/Creatinine Ratio 16 (6-26) Glucose 99 (70-105) mg/dL Calculated Osmolality 292 (280-300) Calcium 8.6 (8.6-10.3) mg/dL Troponin I < 0.03 (< 0.04) ng/mL - Radiology Data Radiology results reviewed: Yes I reviewed the patient's radiology results. Chest X-Ray 04/16/19 21:16 IMPRESSION: No acute cardiopulmonary disease. Stable elevation of the left hemidiaphragm with mild dependent left basilar opacification, likely atelectasis. D/ / Lonnie Dubon MD / Lonnie Dubon MD Interpreting Provider: Lonnie Dubon MD Abdomen/Pelvis CT 04/16/19 21:20 IMPRESSION: Urinary bladder wall thickening suggesting age-indeterminate cystitis Dependent atelectasis in both lung bases Indeterminate low-density renal lesions. Multiphasic exam would be more helpful for complete evaluation. Cysts are favored Gallstones. D/ / Ross Mcdermott / Ross Mcdermott Interpreting Provider: Ross Mcdermott - EKG Data EKG attestation: Yes I reviewed and interpreted this EKG. EKG results narrative: EKG done at 2102 reviewed by myself and the attending shows a normal sinus rhythm with a rate of 63, SD 63, QRS 109, QTC 420 normal axis. There are no acute ST changes no acute T-wave changes, no other signs of ischemia. Heart Score - Score History: Moderately Suspicious EKG: Normal Age: Greater than 65 Risk Factors: 1-2 risk factors Troponin: Less than normal limit HEART Score Total: 4
[2019-04-16 21:59] LABS: Basophils % 0.2 %; Eosinophils # 0.3 K/mcL (0.0-0.6); Eosinophils % 3.3 %; Immature Granulocytes % 0.1 % (0-4); Lymphocytes # 2.8 K/mcL (0.6-4.6); Lymphocytes % 34.1 %; Mean Corpuscular HGB Conc 31.6 g/dL (31.6-35.5); Mean Corpuscular Hemoglobin 30.6 pg (28.0-33.3); Mean Corpuscular Volume 96.9 fL (83.0-100.0); Mean Platelet Volume 10.6 fL (9.4-12.4); Monocytes # 0.8 K/mcL (0.0-1.3); Neutrophils # 4.3 K/mcL (1.6-8.9); Platelet Count 184 K/mcL (140-400); Red Blood Count 3.92 M/mcL (3.82-4.97); Red Cell Distribution Width 13.7 % (11.5-14.5); Segmented Neutrophils % 52.3 %; White Blood Count 8.2 K/mcL (4.3-11.1)
[2019-04-16 22:07] LABS: INR 1.1
[2019-04-16 22:09] LABS: Activated Partial Thrombo Time 33.2 Seconds (26.0-36.0)
[2019-04-16 22:18] LABS: BUN/Creatinine Ratio 16 (6-26); Blood Urea Nitrogen 17 mg/dL (8-23); Calcium 8.6 mg/dL (8.6-10.3); Carbon Dioxide 28 mEq/L (23-29); Chloride 105 mEq/L (98-107); Glucose 99 mg/dL (70-105); Osmolality,Calculated 292 (280-300); Potassium 3.6 mEq/L (3.5-5.1); Sodium 140 mEq/L (136-145); eGFR For African Americans > 60 (> 60); eGFR For Non-African Americans 51 (> 60)
[2019-04-16 22:19] LABS: Troponin I < 0.03 ng/mL (< 0.04)
[2019-04-17] MEDS ORDERED: *HR* HYDROcodone/Acet 5/325 mg TABLET PO PRN (02:05)
[2019-04-17] MEDS ORDERED: Acetaminophen 325 MG TABLET PO PRN (02:05)
[2019-04-17] MEDS ORDERED: Naloxone 0.4 MG/ML INJ IVP PRN (02:05)
[2019-04-17] MEDS ORDERED: Ondansetron 4 MG/2 ML VIAL IVP PRN ×2 (02:05→02:15)
--- NOTE | 2019-04-17 02:11 | Internal Med History&Physical ---
Date of Encounter: 04/17/19 Time of Encounter: 02:11 Internal Medicine - H&P: HPI Chief complaint: Abdominal pain History of present illness: Ms. Acosta is a 83 year old female with past medical history of hypertension, hyperlipidemia who presented to the ER from care home with suprapubic abdominal pain associated with dysuria. The ER staff team communicated the pat ient is also complaining of chest pain, however at bedside the patient is mainly complaining of abdominal pain. She denies shortness of breath, diaphoresis, or palpitation, orthopnea, paroxysmal nocturnal dyspnea, aggressive worsening of lower extremity edema, nausea, vomiting, dysuria and the frequency of urination. The patient was evaluated by the ER staff and CAT scan of the abdomen revealed possible cystitis, urine analysis was obtained and bending. EKG revealed no significant ST-T wave changes and cardiac enzymes first set was with no significant abnormalities. The patient was admitted for further evaluation and management Past Med Surg Social Fam HX - Past Medical History Medical history: cancer, DVT, hypertension, thyroid disease Additional medical history: renal disease Psychiatric history: depression - Past Surgical History Additional surgical history: left mastectomy - Social History Smoking Status: Never smoker Smokeless Tobacco Status: No Alcohol use: none Drug use: none - Family History Mother Living Status: Father Living Status: Hx Family Cardiac Disorders: Yes Internal Medicine - H&P: Meds Dicyclomine [Bentyl] 10 mg PO QID #20 capsule 12/01/16 [Rx] Acetaminophen [Tylenol] 650 mg PO Q6HR PRN 12/03/16 [History] Atorvastatin Calcium [Lipitor] 20 mg PO HS 12/03/16 [History] Calcium Carbonate/Vitamin D3 [Calcium 600-Vit D3 400 Tablet] 1 each PO BID 12/03/16 [History] Citalopram Hydrobromide [Citalopram HBr] 10 mg PO DAILY 12/03/16 [History] LORazepam [Ativan] 0.5 mg PO DAILY 12/03/16 [History] Levothyroxine [Synthroid] 112 mcg PO 0630 12/03/16 [History] Magnesium Hydroxide [Milk of Magnesia] 2,400 mg PO DAILY PRN 12/03/16 [History] Oxybutynin [Ditropan] 5 mg PO BID 12/03/16 [History] Polyethylene Glycol 3350 [Gavilax] 17 gm PO DAILY 12/03/16 [History] Tramadol HCl [Ultram] 50 mg PO Q4H PRN 12/03/16 [History] Aspirin [Lo-Dose Aspirin EC] 81 mg PO DAILY 04/17/19 [History] Bisacodyl [Dulcolax] 5 mg PO DAILY 04/17/19 [History] Furosemide [Lasix] 40 mg PO DAILY 04/17/19 [History] Gabapentin [Neurontin] 100 mg PO TID 04/17/19 [History] Ipratropium/Albuterol Neb [Duoneb] 3 ml IH Q4HR PRN 04/17/19 [History] Isosorbide DInitrate [Isosorbide Dinitrate] 5 mg PO Q8HR 04/17/19 [History] Loratadine [Allergy Relief] 10 mg PO DAILY 04/17/19 [History] Mirtazapine 7.5 mg PO HS 04/17/19 [History] Potassium Chloride [K-Tab ER] 20 meq PO DAILY 04/17/19 [History] Allergy/AdvReac Type Severity Reaction Status Date / Time azithromycin Allergy Anaphylaxis Verified 02/19/17 09:31 All Systems PM: A 10-system review of systems was performed and is negative for pertinent findings except as documented above in the HPI. - Constitutional Vitals: Temp Pulse Resp BP Pulse Ox 97.4 F L 98 16 118/75 98 04/17/19 01:56 04/17/19 01:56 04/17/19 01:56 04/17/19 01:56 04/17/19 01:56 General appearance: Present: A&O X 3 Exam: ` - Head Head exam: Present: atraumatic, normocephalic - Neck Neck exam general surgery: Present: supple, trachea midline. Absent: lymphadenopathy - Respiratory Respiratory exam: Present: CTAB. Absent: accessory muscle use, rales, rhonchi, wheezes - Cardiovascular Cardiovascular exam: Present: RRR, +S1, +S2. Absent: diastolic murmur, gallop, rubs, systolic murmur - GI/Abdominal GI/Abdominal exam: Present: normal bowel sounds, soft, tenderness, no peritoneal signs. Absent: distended Additional comments: Suprapubic tenderness - Extremities Exam Extremities exam: Present: warm, radial pulses palpable and symmetrical. Absent: calf tenderness, cyanotic, pedal edema Internal Med - H&P Results - Labs CBC & Chem 7: 04/17/19 02:42 04/17/19 02:42 Labs: Short CBC 04/16/19 Range/Units 21:39 WBC 8.2 (4.3-11.1) K/mcL Hgb 12.0 (11.5-15.4) g/dL Hct 38.0 (35.3-44.9) % Plt Count 184 (140-400) K/mcL Neutrophils # 4.3 (1.6-8.9) K/mcL BMP 04/16/19 21:39 Sodium 140 Potassium 3.6 Chloride 105 Carbon Dioxide 28 BUN 17 Creatinine 1.04 Glucose 99 Calcium 8.6 Cardiac Enzymes 04/16/19 Range/Units 21:39 Troponin I < 0.03 (< 0.04) ng/mL - Impressions ITS Impressions Chest X-Ray 04/16/19 21:16 IMPRESSION: No acute cardiopulmonary disease. Stable elevation of the left hemidiaphragm with mild dependent left basilar opacification, likely atelectasis. D/ / Lonnie Dubon MD / Lonnie Dubon MD Interpreting Provider: Lonnie Dubon MD Abdomen/Pelvis CT 04/16/19 21:20 IMPRESSION: Urinary bladder wall thickening suggesting age-indeterminate cystitis Dependent atelectasis in both lung bases Indeterminate low-density renal lesions. Multiphasic exam would be more helpful for complete evaluation. Cysts are favored Gallstones. D/ / Ross Mcdermott / Ross Mcdermott Interpreting Provider: Ross Mcdermott - Assessment and Plan (1) UTI (urinary tract infection) Current Visit: Yes Status: Acute Assessment and plan: The patient presented with abdominal pain mainly suprapubic, CT scan of the abdomen was suggestive of cystitis, urinalysis was obtained and was suggestive of urinary tract infection, we will start the patient on IV hydration with normal saline, start empiric antibiotic with Rocephin and follow urine culture and adjust antibiotic accordingly if indicated. Qualifiers: Qualified Code(s): N39.0 - Urinary tract infection, site not specified; R31.9 - Hematuria, unspecified (2) Chest pain Current Visit: Yes Status: Acute Assessment and plan: - The ER staff team communicated the patient is also complaining of chest pain, however at bedside the patient is mainly complaining of abdominal pain. She denies shortness of breath, diaphoresis, or palpitation, orthopnea, paroxysmal nocturnal dyspnea, aggressive worsening of lower extremity edema, nausea, vomiting, dysuria and the frequency of urination. EKG revealed no significant ST-T wave changes and cardiac enzymes first set was with no significant abnormalities. DD *Muskuloskeletal CP - myofascial strain, costochondritis *GERD *Esophageal spasm *Pericarditis - unlikely *Pneumonia - no infiltrate on CXR PLAN: - cardiac enzymes x 2 q 8 hr - EKG now and in AM - ASA - O2 by NC to keep SpO2 greater than 92% - UA - CBCD, BMP in AM - Fasting lipids - 2D Echo Qualifiers: Qualified Code(s): R07.9 - Chest pain, unspecified (3) Essential hypertension Current Visit: No Status: Chronic Assessment and plan: We will continue home medication, will continue to monitor blood pressure while inpatient and adjust accordingly. (4) Hypothyroidism Current Visit: Yes Status: Acute Assessment and plan: We will continue home thyroxine Qualifiers: Qualified Code(s): E03.9 - Hypothyroidism, unspecified (5) History of DVT in adulthood Current Visit: No Status: Chronic Assessment and plan: The patient has history of DVT, viewing his her record indicated that she used to be on chronic anticoagulations. - Time Spent With Patient Total time spent is greater than 50% in coordination of care (as documented) at patient's floor/unit and/or counseling patient:
[2019-04-17 02:55] LABS: Basophils % 0.3 %; Eosinophils # 0.3 K/mcL (0.0-0.6); Eosinophils % 3.4 %; Hematocrit 39.7 % (35.3-44.9); Hemoglobin 12.5 g/dL (11.5-15.4); Immature Granulocytes % 0.1 % (0-4); Lymphocytes # 2.9 K/mcL (0.6-4.6); Lymphocytes % 39.4 %; Mean Corpuscular HGB Conc 31.5 g/dL (31.6-35.5); Mean Corpuscular Hemoglobin 30.6 pg (28.0-33.3); Mean Corpuscular Volume 97.1 fL (83.0-100.0); Mean Platelet Volume 10.6 fL (9.4-12.4); Monocytes # 0.6 K/mcL (0.0-1.3); Monocytes % 8.3 %; Neutrophils # 3.5 K/mcL (1.6-8.9); Platelet Count 194 K/mcL (140-400); Red Blood Count 4.09 M/mcL (3.82-4.97); Red Cell Distribution Width 13.6 % (11.5-14.5); Segmented Neutrophils % 48.5 %; White Blood Count 7.3 K/mcL (4.3-11.1)
[2019-04-17 03:01] LABS: Prothrombin Time 11.9 Seconds (9.4-12.1)
[2019-04-17 03:04] LABS: Activated Partial Thrombo Time 33.3 Seconds (26.0-36.0)
[2019-04-17 03:18] LABS: Alanine Aminotransferase 14 Units/L (7-52); Albumin 3.5 g/dL (3.5-5.7); Alkaline Phosphatase 93 Units/L (34-104); Aspartate Amino Transferase 18 Units/L (13-39); BUN/Creatinine Ratio 16 (6-26); Bilirubin,Total 0.4 mg/dL (0.3-1.0); Blood Urea Nitrogen 16 mg/dL (8-23); Calcium 8.6 mg/dL (8.6-10.3); Carbon Dioxide 27 mEq/L (23-29); Chloride 103 mEq/L (98-107); Chol/HDL Ratio 3.9 (0-4.9); Cholesterol 139 mg/dL (< 200); Globulin 3.4 g/dL (2.4-3.5); Glucose 91 mg/dL (70-105); HDL Cholesterol 36 mg/dL (40-59); LDL Cholesterol,Calculated 82 mg/dL (0-99); Osmolality,Calculated 293 (280-300); Phosphorous 2.9 mg/dL (2.7-4.5); Potassium 3.6 mEq/L (3.5-5.1); Sodium 141 mEq/L (136-145); Total Protein 6.9 g/dL (6.4-8.9); Triglycerides 103 mg/dL (< 150); eGFR For African Americans > 60 (> 60); eGFR For Non-African Americans 52 (> 60)
[2019-04-17] MEDS: 0.9 % Sodium Chloride 1,000 ML IVC SCH ×2 (03:29→11:04)
[2019-04-17 04:15] LABS: Bilirubin,Urine Negative (Negative); Blood,Urine Moderate (Negative); Clarity,Urine Turbid (Clear); Color,Urine Yellow (Yellow); Glucose,Urine (UA) Normal (Normal); Ketones,Urine Negative (Negative); Leukocyte Esterase,Urine Large (Negative); Nitrite,Urine Positive (Negative); Protein,Urine 30 mg/dL (Neg-Trace); Specific Gravity,Urine > 1.030 (1.010-1.025); Urobilinogen,Urine Normal (Normal)
[2019-04-17 04:16] LABS: Bacteria,Urine Many per hpf (None-Few); Hyaline Casts,Urine None Seen per lpf (None-Few); Squamous Epithelial Cell,Urine Many per lpf (None-Few); WBC,Urine TNTC per hpf (0-3)
[2019-04-17 04:29] LABS: Yeast,Urine Few per hpf (None Seen)
[2019-04-17] MEDS ORDERED: MOM Conc 10 ML UD.LIQ PO PRN (06:05)
[2019-04-17] MEDS ORDERED: Ipratropium/Albuterol Neb 3 ML IH PRN (06:05)
[2019-04-17] MEDS ORDERED: traMADol 50 MG TABLET PO PRN (06:05)
[2019-04-17] MEDS: cefTRIAXone 2,000 MG in Water for inj. (sterile) 20 ML IVP SCH (06:40)
[2019-04-17] MEDS: Cholecalciferol (D-3) 1,000 UNIT (25MCG) TABLET PO SCH (08:33)
[2019-04-17] MEDS: Loratadine 10 MG TABLET PO SCH (08:34)
[2019-04-17] MEDS: Gabapentin 100 MG CAPSULE PO SCH ×3 (08:34→20:26)
[2019-04-17] MEDS: Aspirin Enteric Coated 81 MG Tablet PO SCH (08:34)
[2019-04-17] MEDS: Furosemide 40 MG TABLET PO SCH (08:34)
[2019-04-17] MEDS: *HR* LORazepam 0.5 MG TABLET PO SCH (08:34)
--- NOTE | 2019-04-17 13:57 | Internal Med Progress Note ---
Hospitalist Progress Note - Encounter Date of Encounter: 04/17/19 Time of Encounter: 12:30 - Subjective Interval History: Ms. Acosta is a 83 year old female with past medical history of hypertension and hyperlipidemia who presented to the ER from alf with suprapubic abdominal pain associated with dysuria. She also c/o generalized body aches and chest pain. The patient was evaluated by the ER staff and CAT scan of the abdomen revealed possible cystitis, urine analysis was obtained and bending. EKG revealed no significant ST-T wave changes and normal troponin. Pt was admitted in the hospital and placed her on tele. Her serial troponin were negative. She still has some supra pubic discomfort. - Exam Vitals: Temp Pulse Resp BP Pulse Ox 97.9 F 70 16 95/60 92 04/17/19 10:25 04/17/19 10:25 04/17/19 10:25 04/17/19 10:25 04/17/19 10:25 Exam: Gen: Alert, awake, Oriented to time,place and person Chest: Diminished breath sounds B/L, No wheezing, No crackles, No rales Heart: S1S2+ RRR No murmurs Abd: Soft, mild discomfort in supra pubic region, BS +, No organomegaly Ext: No edema, pulses are palpable, No calf tenderness Neuro : No acute focal neuro deficits noticed Skin: No rash. - Assessment and Plan (1) UTI (urinary tract infection) Current Visit: Yes Status: Acute Assessment and Plan: Cont empirical abx IV Rocephin will f/u on urine cx (2) Chest pain Current Visit: Yes Status: Acute Assessment and Plan: Serial troponin were negative No acute ischemic changes Her CP is atypical Her body aches are mostly due to UTI will f/u on 2 D Echo (3) Essential hypertension Current Visit: No Status: Chronic Assessment and Plan: stable BP cont home meds (4) History of DVT in adulthood Current Visit: No Status: Chronic Assessment and Plan: Not on anti coag now on Heparin SQ for prophylaxis (5) Hypothyroidism Current Visit: Yes Status: Acute Assessment and Plan: continue home thyroxine - Time Spent with Patient Total time spent is greater than 50% in coordination of care (as documented) at patient's floor/unit and/or counseling patient: Internal Medicine: Result - Labs CBC & Chem 7: 04/17/19 02:42 04/17/19 02:42 Labs: Short CBC 04/16/19 04/17/19 Range/Units 21:39 02:42 WBC 8.2 7.3 (4.3-11.1) K/mcL Hgb 12.0 12.5 (11.5-15.4) g/dL Hct 38.0 39.7 (35.3-44.9) % Plt Count 184 194 (140-400) K/mcL Neutrophils # 4.3 3.5 (1.6-8.9) K/mcL BMP 04/16/19 04/17/19 21:39 02:42 Sodium 140 141 Potassium 3.6 3.6 Chloride 105 103 Carbon Dioxide 28 27 BUN 17 16 Creatinine 1.04 1.01 Glucose 99 91 Calcium 8.6 8.6 Cardiac Enzymes 04/16/19 04/17/19 04/17/19 Range/Units 21:39 02:42 10:33 Troponin I < 0.03 < 0.03 < 0.03 (< 0.04) ng/mL Liver Function 04/17/19 Range/Units 02:42 Total Bilirubin 0.4 (0.3-1.0) mg/dL AST 18 (13-39) Units/L ALT 14 (7-52) Units/L Alkaline Phosphatase 93 (34-104) Units/L Albumin 3.5 (3.5-5.7) g/dL Urine 04/17/19 Range/Units 04:05 Urine Color Yellow (Yellow) Urine Clarity Turbid A (Clear) Urine pH 7.0 (5.0-8.0) pH Units Ur Specific [place] > 1.030 H (1.010-1.025) Urine Protein 30 H (Neg-Trace) mg/dL Urine Glucose (UA) Normal (Normal) mg/dL - ABG Interpretation ABG results: PT/INR, D-dimer PT 11.9 Seconds (9.4-12.1) 04/17/19 02:42 - Impressions Impressions Chest X-Ray 04/16/19 21:16 IMPRESSION: No acute cardiopulmonary disease. Stable elevation of the left hemidiaphragm with mild dependent left basilar opacification, likely atelectasis. D/ / Lonnie Dubon MD / Lonnie Dubon MD Interpreting Provider: Lonnie Dubon MD Abdomen/Pelvis CT 04/16/19 21:20 IMPRESSION: Urinary bladder wall thickening suggesting age-indeterminate cystitis Dependent atelectasis in both lung bases Indeterminate low-density renal lesions. Multiphasic exam would be more helpful for complete evaluation. Cysts are favored Gallstones. D/ / Ross Mcdermott / Ross Mcdermott Interpreting Provider: Ross Mcdermott Consult Discharge Plan - Plan Referrals: NONE,PCP [Non-Partnered Physician] - (1) UTI (urinary tract infection) Qualifiers: Qualified Code(s): N39.0 - Urinary tract infection, site not specified; R31.9 - Hematuria, unspecified (2) Chest pain Qualifiers: Qualified Code(s): R07.9 - Chest pain, unspecified (5) Hypothyroidism Qualifiers: Hypothyroidism type: unspecified Qualified Code(s): E03.9 - Hypothyroidism, unspecified
[2019-04-17] MEDS ORDERED: Perflutren Lipid Microsphere 1.3 ML in 0.9 % Sodium Chloride 8.7 ML IVP ONE (14:21)
--- NOTE | 2019-04-17 14:24 | Electrocardiograph Report ---
[address] [place], [place] [address] Test Date: 2019-04-16 Pat Name: Rachel Acosta Department: [id number] Room: 3B Gender: Forestry Aide: : 1935 Requested By: [id number] Order Number: [id number] Reading MD: Ronen Paris Measurements Intervals [place] Rate: 63 P: 39 [place]: 63 QRS: -1 QRSD: 109 T: 32 QT: 420 QTc: 430 Interpretive Statements Sinus rhythm Short [place] interval Low voltage, precordial leads Electronically Signed On 04-17-2019 14:23:06 EDT by Ronen Paris
[2019-04-17] MEDS ORDERED: Perflutren Lipid Microsphere 2 ML VIAL ONE (14:26)
[2019-04-17] MEDS ORDERED: Mirtazapine 15 MG TABLET PO SCH (21:00)
[2019-04-18] MEDS: cefTRIAXone 2,000 MG in Water for inj. (sterile) 20 ML IVP SCH (06:34)
[2019-04-18] MEDS: Gabapentin 100 MG CAPSULE PO SCH (09:24)
[2019-04-18] MEDS: Furosemide 40 MG TABLET PO SCH (09:24)
[2019-04-18] MEDS: Aspirin Enteric Coated 81 MG Tablet PO SCH (09:24)
[2019-04-18] MEDS: Loratadine 10 MG TABLET PO SCH (09:24)
[2019-04-18] MEDS: Cholecalciferol (D-3) 1,000 UNIT (25MCG) TABLET PO SCH (09:24)
[2019-04-18] MEDS: *HR* LORazepam 0.5 MG TABLET PO SCH (09:25)
[2019-04-18 11:22] VITALS: BP 117/80
--- NOTE | 2019-04-18 11:48 | Discharge Summary ---
- NOTES TO OUTPATIENT PROVIDER Notes to Outpatient Provider: f/u with PCP in one week. Orders not resulted at time of discharge: Pending orders 04/17/19 04:05 Culture,Urine [RM] Stat 04/17/19 06:00 ECG 12 lead ECG [ECG] AM 0600 Date of Encounter: 04/18/19 Time of Encounter: 11:46 - Discharge Diagnosis (1) UTI (urinary tract infection) Priority: Primary Status: Acute Qualifiers: Qualified Code(s): N39.0 - Urinary tract infection, site not specified; R31.9 - Hematuria, unspecified (2) Chest pain Priority: Secondary Status: Acute Qualifiers: Chest pain type: unspecified Qualified Code(s): R07.9 - Chest pain, unspecified (3) Essential hypertension Priority: Secondary Status: Chronic (4) History of DVT in adulthood Priority: Secondary Status: Chronic (5) Hypothyroidism Priority: Secondary Status: Acute Qualifiers: Hypothyroidism type: unspecified Qualified Code(s): E03.9 - Hypothyroidism, unspecified Hospital course: Ms. Acosta is a 83 year old female with past medical history of hypertension and hyperlipidemia who presented to the ER from skilled nursing with suprapubic abdominal pain associated with dysuria. She also c/o generalized body aches and chest pain. The patient was evaluated by the ER staff and CT scan of the abdomen revealed possible cystitis, urine analysis was obtained and bending. EKG r evealed no significant ST-T wave changes and normal troponin. Pt was admitted in the hospital and placed her on tele. Her serial troponin were negative. She was started on empirical antibiotic IV Rocephin. Patient was continue IV hydration. Her symptoms improved and she is feeling much better today. Her urine culture growing gram-negative rods. Will discharge her back to skilled nursing today in stable condition with PO Abx Omnicef for 5 more days since she does have complicated cystitis / UTI. - Time Spent with Patient Total time spent providing and/or coordinating discharge services: - Discharge Medications Prescriptions: New Cefdinir [Omnicef] 300 mg PO BID #10 capsule Continued Dicyclomine [Bentyl] 10 mg PO QID #20 capsule Oxybutynin [Ditropan] 5 mg PO BID Levothyroxine [Synthroid] 112 mcg PO 0630 Citalopram Hydrobromide [Citalopram HBr] 10 mg PO DAILY Atorvastatin Calcium [Lipitor] 20 mg PO HS Polyethylene Glycol 3350 [Gavilax] 17 gm PO BID Gabapentin [Neurontin] 100 mg PO BID Furosemide [Lasix] 40 mg PO DAILY Potassium Chloride [K-Tab ER] 20 meq PO DAILY Ipratropium/Albuterol Neb [Duoneb] 3 ml IH Q4HR PRN PRN Reason: Shortness Of Breath Bisacodyl [Dulcolax] 10 mg PO DAILY Isosorbide DInitrate [Isosorbide Dinitrate] 5 mg PO Q8HR Alendronate Sodium [Fosamax] 70 mg PO QWEEK Dextran 70/Hypromellose [Natural Balance Tears Eye Drop] 3 drop BOTH EYES TID Diclofenac Sodium [Voltaren] 2 gm TP BID LORazepam [Ativan] 0.5 mg PO DAILY PRN PRN Reason: Anxiety Nitroglycerin [Nitrostat] 0.4 mg SL Q5MIN PRN MDD X3 DOSES CALL 911 PRN Reason: Chest Pain Scopolamine Patch [Transderm-Scop] 1.5 mg TP Q72H LORazepam [Ativan] 0.25 mg PO DAILY 10 Days #5 tablet Mirtazapine 7.5 mg PO HS #15 tablet Changed Tramadol HCl [Ultram] 50 mg PO Q6H PRN 7 Days #20 tablet PRN Reason: Pain Home Medications: Dicyclomine [Bentyl] 10 mg PO QID #20 capsule 12/01/16 [Rx] Atorvastatin Calcium [Lipitor] 20 mg PO HS 12/03/16 [History] Citalopram Hydrobromide [Citalopram HBr] 10 mg PO DAILY 12/03/16 [History] Levothyroxine [Synthroid] 112 mcg PO 0630 12/03/16 [History] Oxybutynin [Ditropan] 5 mg PO BID 12/03/16 [History] Polyethylene Glycol 3350 [Gavilax] 17 gm PO BID 12/03/16 [History] Alendronate Sodium [Fosamax] 70 mg PO QWEEK 04/17/19 [History] Bisacodyl [Dulcolax] 10 mg PO DAILY 04/17/19 [History] Dextran 70/Hypromellose [Natural Balance Tears Eye Drop] 3 drop BOTH EYES TID 04/17/19 [History] Diclofenac Sodium [Voltaren] 2 gm TP BID 04/17/19 [History] Furosemide [Lasix] 40 mg PO DAILY 04/17/19 [History] Gabapentin [Neurontin] 100 mg PO BID 04/17/19 [History] Ipratropium/Albuterol Neb [Duoneb] 3 ml IH Q4HR PRN 04/17/19 [History] Isosorbide DInitrate [Isosorbide Dinitrate] 5 mg PO Q8HR 04/17/19 [History] LORazepam [Ativan] 0.5 mg PO DAILY PRN 04/17/19 [History] Nitroglycerin [Nitrostat] 0.4 mg SL Q5MIN PRN MDD X3 DOSES CALL 911 04/17/19 [History] Potassium Chloride [K-Tab ER] 20 meq PO DAILY 04/17/19 [History] Scopolamine Patch [Transderm-Scop] 1.5 mg TP Q72H 04/17/19 [History] Cefdinir [Omnicef] 300 mg PO BID #10 capsule 04/18/19 [Rx] LORazepam [Ativan] 0.25 mg PO DAILY 10 Days #5 tablet 04/18/19 [Rx] Mirtazapine 7.5 mg PO HS #15 tablet 04/18/19 [Rx] Tramadol HCl [Ultram] 50 mg PO Q6H PRN 7 Days #20 tablet 04/18/19 [Rx] Allergies/Adverse Reactions: Allergy/AdvReac Type Severity Reaction Status Date / Time azithromycin Allergy Anaphylaxis Verified 04/17/19 23:24 Date of admission: 04/17/19 01:09 Primary care physician: Hayden Aguiar MD - Constitutional Vitals: Temp Pulse Resp BP Pulse Ox 98.4 F 67 16 117/80 99 04/18/19 11:00 04/18/19 11:00 04/18/19 11:00 04/18/19 11:00 04/18/19 11:00 General appearance: Present: A&O X 3 Exam: Gen: Alert, awake, Oriented to time,place and person Chest: Diminished breath sounds B/L, No wheezing, No crackles, No rales Heart: S1S2+ RRR No murmurs Abd: Soft, no discomfort in supra pubic region, BS +, No organomegaly Ext: No edema, pulses are palpable, No calf tenderness Neuro : No acute focal neuro deficits noticed Skin: No rash. - Patient Status Disposition: Transfer SNF Condition: Good Overall status at discharge: patient is back to baseline - Discharge Instructions Follow Up With: NONE,PCP [Non-Partnered Physician] - - Diet and Activity Activity: as per physical therapy, increase activity as tolerated Diet: low salt diet
--- NOTE | 2019-04-18 13:10 | Physician Discharge Referral ---
ExtendedCare Referral Info Transfer To: F Provider in Charge after Transfer: PCP Institutional Level of Care: Skilled - Diagnosis (1) UTI (urinary tract infection) Status: Acute (2) Chest pain Status: Acute (3) Essential hypertension Status: Chronic (4) History of DVT in adulthood Status: Chronic (5) Hypothyroidism Status: Acute - Transfer Medications Prescriptions: LORazepam [Ativan] 0.25 mg PO DAILY 10 Days #5 tablet Mirtazapine 7.5 mg PO HS #15 tablet Cefdinir [Omnicef] 300 mg PO BID #10 capsule Tramadol HCl [Ultram] 50 mg PO Q6H PRN 7 Days #20 tablet PRN Reason: Pain Home Medications: Dicyclomine [Bentyl] 10 mg PO QID #20 capsule 12/01/16 [Rx] Atorvastatin Calcium [Lipitor] 20 mg PO HS 12/03/16 [History] Citalopram Hydrobromide [Citalopram HBr] 10 mg PO DAILY 12/03/16 [History] Levothyroxine [Synthroid] 112 mcg PO 0630 12/03/16 [History] Oxybutynin [Ditropan] 5 mg PO BID 12/03/16 [History] Polyethylene Glycol 3350 [Gavilax] 17 gm PO BID 12/03/16 [History] Alendronate Sodium [Fosamax] 70 mg PO QWEEK 04/17/19 [History] Bisacodyl [Dulcolax] 10 mg PO DAILY 04/17/19 [History] Dextran 70/Hypromellose [Natural Balance Tears Eye Drop] 3 drop BOTH EYES TID 04/17/19 [History] Diclofenac Sodium [Voltaren] 2 gm TP BID 04/17/19 [History] Furosemide [Lasix] 40 mg PO DAILY 04/17/19 [History] Gabapentin [Neurontin] 100 mg PO BID 04/17/19 [History] Ipratropium/Albuterol Neb [Duoneb] 3 ml IH Q4HR PRN 04/17/19 [History] Isosorbide DInitrate [Isosorbide Dinitrate] 5 mg PO Q8HR 04/17/19 [History] LORazepam [Ativan] 0.5 mg PO DAILY PRN 04/17/19 [History] Nitroglycerin [Nitrostat] 0.4 mg SL Q5MIN PRN MDD X3 DOSES CALL 911 04/17/19 [History] Potassium Chloride [K-Tab ER] 20 meq PO DAILY 04/17/19 [History] Scopolamine Patch [Transderm-Scop] 1.5 mg TP Q72H 04/17/19 [History] Cefdinir [Omnicef] 300 mg PO BID #10 capsule 04/18/19 [Rx] LORazepam [Ativan] 0.25 mg PO DAILY 10 Days #5 tablet 04/18/19 [Rx] Mirtazapine 7.5 mg PO HS #15 tablet 04/18/19 [Rx] Tramadol HCl [Ultram] 50 mg PO Q6H PRN 7 Days #20 tablet 04/18/19 [Rx] Allergies/Adverse Reactions: Allergy/AdvReac Type Severity Reaction Status Date / Time azithromycin Allergy Anaphylaxis Verified 04/17/19 23:24 - Respiratory Orders Smoking Cessation: Smoking cessation has been advised. For more information, call the [place] Tobacco Quit Line at 7-580-DUHN-NOW. CERTIFICATION: I certify that the transfer of the above named patient to an Extended Care Facility is necessary for the continuing treatment of the diagnosis listed. The above information is true and accurate reflection of patient's current condition. Confidential - Redisclosure prohibited without a patient's written consent.
== END 2019-04-18 13:57 ==
LOC: EMEROOARM 20:53 → 3BNU 20:53 → SUATTDRO 04-17 01:09 → 3BNU 04-17 01:25
PROVIDERS: ADMIT Internal Medicine Nephrology; ATTEND Family Medicine